=== PATIENT | female | born 1965 | race Caucasian/White ===

== ENCOUNTER 2022-04-16 05:01 | Inpatient (IN) | payer OTHER ==
[~2022-04-16] VITALS: Ht 154.9 cm; Wt 122.5 kg
[2022-04-16 05:50] LABS: HEMOGLOBIN 16.8 gm/dl (12.3-15.3); RED BLOOD COUNT 5.38 M/UL (4.00-5.10); WHITE BLOOD COUNT 15.2 K/UL (4.5-11.0)
[2022-04-16 06:15] LABS: BUN/CREATININE RATIO 21 (0-10)
[2022-04-16] MEDS ORDERED: TRICOR 145 MG145 MG PO (11:40)
[2022-04-16] MEDS ORDERED: FUROSEMIDE40 MG PO (11:40)
[2022-04-16] MEDS ORDERED: TRAZODONE HCL50 MG PO (11:41)
[2022-04-16] MEDS ORDERED: PROAIR HFA8.5 GM INH (11:41)
[2022-04-16] MEDS ORDERED: POTASSIUM CHLO10 ME1 PO (11:41)
[2022-04-16] MEDS ORDERED: GABAPENTIN300 MG PO (11:41)
[2022-04-16] MEDS ORDERED: IPRAT-ALBUT 0.5-3 ML INH (11:42)
[2022-04-16] MEDS ORDERED: AMLODIPINE BESY10 MG PO (11:42)
[2022-04-16] MEDS ORDERED: BACLOFEN20 MG PO (11:42)
[2022-04-16] MEDS ORDERED: SYNTHROID200 MCG PO (11:42)
[2022-04-16] MEDS ORDERED: CETIRIZINE HCL10 MG PO (11:42)
[2022-04-16] MEDS ORDERED: MIRAPEX0.5 MG PO (11:43)
[2022-04-16] MEDS ORDERED: PERCOCET 7.5-31 EACH PO (11:43)
[2022-04-16] MEDS ORDERED: SIMVASTATIN80 MG PO (11:44)
[2022-04-16] MEDS ORDERED: ALPRAZOLAM0.25 MG PO (11:44)
[2022-04-16] MEDS ORDERED: PHENERGAN 25 MG25 M1 PO (11:44)
[2022-04-16] MEDS ORDERED: ASPIRIN325 MG PO (11:44)
[2022-04-16] MEDS ORDERED: GAS-X125 MG PO (11:45)
[2022-04-17 03:52] LABS: HEMOGLOBIN 16.4 gm/dl (12.3-15.3); RED BLOOD COUNT 5.44 M/UL (4.00-5.10); WHITE BLOOD COUNT 11.6 K/UL (4.5-11.0)
[2022-04-17] MEDS ORDERED: MOXIFLOXACIN H400 MG PO (12:09)
[2022-04-17] MEDS ORDERED: ASPIRIN EC81 MG PO (12:09)
[2022-04-17] MEDS ORDERED: COZAAR25 MG PO (12:09)
[2022-04-17] MEDS ORDERED: SYMBICORT 16010.2 GM INH (12:19)
[2022-04-17] MEDS ORDERED: AMLODIPINE BESYL5 MG PO (12:19)
== END 2022-04-17 14:25 | disposition home or self-care (01) | DRG 177 ==
LOC: ER1 05:01 → CDU 11:05 → PROG CARE 13:08
PROVIDERS: Physician Assistant Medical; Student in an Organized Health Care Education/Training Program; ADMIT Internal Medicine Infectious Disease
DX: J69.0 Pneumonitis due to inhalation of food and vomit (principal); I50.33 Acute on chronic diastolic (congestive) heart failure; Z20.822 Contact with and (suspected) exposure to COVID-19; J44.9 Chronic obstructive pulmonary disease, unspecified; E03.9 Hypothyroidism, unspecified; G89.29 Other chronic pain; F17.210 Nicotine dependence, cigarettes, uncomplicated; M25.512 Pain in left shoulder; I11.0 Hypertensive heart disease with heart failure; E78.00 Pure hypercholesterolemia, unspecified; E66.01 Morbid (severe) obesity due to excess calories; F32.A Depression, unspecified; I27.21 Secondary pulmonary arterial hypertension; E78.5 Hyperlipidemia, unspecified; M54.9 Dorsalgia, unspecified; F41.9 Anxiety disorder, unspecified; Z88.0 Allergy status to penicillin; Z85.41 Personal history of malignant neoplasm of cervix uteri; Z90.49 Acquired absence of other specified parts of digestive tract; Z98.891 History of uterine scar from previous surgery; Z82.49 Family history of ischemic heart disease and other diseases of the circulatory system; Z80.8 Family history of malignant neoplasm of other organs or systems
CPT/HCPCS: 0240U; 36415; 71045; 71260; 73030; 73200; 80048; 80053; 82550; 82553; 83605; 83735; 83880; 84484; 85025; 85027; 85379; 85652; 86140; 93005; 94640; 94664; 94760; 96365; 96375; 99285; J0360; J1940; J2060; Q9967